=== PATIENT | female | born 1945 | race Caucasian/White ===

== ENCOUNTER → 2017-11-24 | Outpatient (CLI) | payer MEDICARE, OTHER ==
[2017-11-24] MEDS: IOHEXOL 180 MG/ML 10 ML VIAL. IT (10:27)
== END | disposition home or self-care (01) ==
LOC: RAD 08:34
DX: M51.16 Intervertebral disc disorders with radiculopathy, lumbar region (principal); N28.1 Cyst of kidney, acquired; M43.16 Spondylolisthesis, lumbar region; Z98.890 Other specified postprocedural states
CPT/HCPCS: 72132; 72265

== ENCOUNTER → 2020-07-03 | Outpatient (CLI) | payer MEDICARE, OTHER ==
[2017-11-24 11:16] VITALS: BP 184/66
[~2020-07-03] MED LIST: AMLO10TA8 PO; ASPI-482 PO; CARV25TA2 PO; CLON0.1T PO; CLON0.2T PO; CYAN100031 PO; FAMO20TA5 PO; LISI-130 PO; LOSA-73 PO; METF500T16 PO; MULT-460 PO; OMEG10005 PO; PANT40TA77 PO; PRAV20TA2 PO; PRAV80TA2 PO; PREG-9 PO; TRAM50TA PO; VITA150T PO; VITA400C11 PO
--- NOTE | 2020-07-03 13:05 | PDOC2 ---
INITIAL PAIN CONSULT DATE OF SERVICE: DOS: DATE: 07/03/20 TIME: 12:57 CHIEF COMPLAINT: Chief Complaint: Low back and right lower extremity pain HISTORY OF PRESENT ILLNESS: This is a 74-year-old female presents history of pain low back right lower extremity for many years status post lumbar surgery 2013 with good results initially with pain returning and over the past 2 years patient reports she had fallen in her laundry room about 2 years ago and has had pain in the low back and right lower extremity ever since. Patient reports is constant sharp stabbing throbbing shooting tingling with radiating pain in the lower back posterior gluteus posterior lateral thigh lateral calf and into the posterior calf as well on the right side with a burning sensation. Patient reports he is recently seen her neurosurgeon Dr. Dany Cutler who is not recommending any further surgery at this time. Patient has had multiple procedures over the years for pain management including epidural steroid injections trigger points also physical therapies exercise chiropractic treatment over the years as well as taking Percocet which does decrease the pain patient reports that the injections only made her blood pressure go up and did not significantly help the pain long-term. Patient ports pain wakes her up from sleep release 3 times a night does not affect her bowel bladder control but does affect ability to walk fairly significantly she uses a cane at times it did not happen with her on her visit today. Patient rates her disability of 0-10 10 me the worst is a 10 with family home responsibilities social activity occupation 9 with recreation 8 with self-care and 7 with life support activities patient had MRI scan lumbar spine April 17, 2020 showing disc desiccation throughout the lumbar spine with sparing of the L5-S1 multilevel degenerative changes facet arthrosis and ligamentum flavum thickening L4-5 shows anterolisthesis with central canal stenosis and bilateral neuroforaminal stenosis. Patient reports no loss of motor function but significant fatigability of the right lower extremity with any weightbearing standing or walking. PAST MEDICAL HISTORY: PMH: Type 2 diabetes, colon cancer, shortness of breath, hypertension quit smoking 11 years ago, arthritis, rheumatoid arthritis, stage IV kidney disease PREVIOUS SURGERIES: Past Surgical Hx: Colon resection, cholecystectomy, hammertoe correction, right carpal tunnel repair, lumbar laminectomy, sinus surgery, left rotator cuff repair CURRENT MEDICATIONS: Current Meds: Active Scripts Medications Dose Route/Sig Max Daily Dose Days Date Category Pantoprazole Sodium 40 Mg Tablet.dr 40 Mg PO DAILY 01/24/14 Reported Tramadol Hcl 50 Mg Tablet 50 Mg PO TID PRN 01/24/14 Reported Multiple Vitamin (Multivitamin With Minerals) 1 Each Tablet 1 Each PO DAILY 01/24/14 Reported Super B Complex (Vitamin B Complex & Vit C No.4) 150 Mg Tablet 150 Mg PO DAILY 01/24/14 Reported [place]-3 (Kenilworth-3 Fatty Acids) 1,000 Mg Capsule 1,200 Mg PO DAILY 01/24/14 Reported B-12 (Cyanocobalamin (Vitamin B-12)) 1,000 Mcg Tablet.er 1,000 Mcg PO DAILY 01/24/14 Reported Vitamin E 400 Unit Capsule 400 Unit PO DAILY 01/24/14 Reported Aspir 81 (Aspirin) 81 Mg Tablet.dr 81 Mg PO DAILY 01/24/14 Reported Losartan Potassium 50 Mg Tablet 50 Mg PO DAILY 01/24/14 Reported Amlodipine Besylate 10 Mg Tablet 10 Mg PO DAILY 01/24/14 Reported Clonidine Hcl 0.2 Mg Tablet 0.2 Mg PO HS 01/24/14 Reported Carvedilol 25 Mg Tablet 25 Mg PO BID 01/24/14 Reported Metformin Hcl 500 Mg Tablet 500 Mg PO BID 01/24/14 Reported Pravastatin Sodium 20 Mg Tablet 20 Mg PO HS 01/24/14 Reported ALLERGIES; Allergies: Coded Allergies: No Known Drug Allergies (Unverified , 02/10/14) FAMILY HISTORY: Family Hx: Breast cancer, hypertension SOCIAL HISTORY: Social Hx: Patient does not drink alcohol does not smoke quit many years ago does not use any illegal illicit recreational drugs is single [place] has 1 child living at home and is currently retired. REVIEW OF SYSTEMS: ROS: Positive for those items mentioned in historyof present illness, all systems reviewed, otherwise negative, is complete full and well-documented on patient's chart PHYSICAL EXAM: VS: Blood pressure 149/78 pulse 54 respirations 18 temperature 97.7 F height is 5 foot 4 and half inches weight is 1 3 6 pounds PE: PHYSICAL EXAMINATION: GENERAL: The patient is awake, alert, oriented, appropriate, very pleasant demeanor HEENT: Shows normocephalic, atraumatic. Extraocular movements are intact and symmetrical. Oral cavity: Mucous membranes moist and pink. Dentition is intact. NECK: Shows anterior throat supple without palpable lymphadenopathy noted. Swallow reflex symmetrical. CHEST: Shows normal on inspection. Breath sounds are clear bilaterally, no rales rhonchi or wheezes auscultated. HEART: Shows S1, S2 clear. No murmurs auscultated. ABDOMEN: Soft, nontender, nondistended. No palpable organomegaly is noted. No rebound or guarding demonstrated. BACK: Shows spine grossly in the midline. Normal-appearing cervical lordotic curvature. There is slightly increased thoracic kyphosis, some minor flattening of the lumbar lordotic curvature, with well-healed surgical scarring noted. Lumbar paraspinous muscles show symmetrical on inspection, on palpation shows some moderate tenderness diffusely throughout the upper, middle and lower distribution of the paraspinous muscles bilaterally and also into the lower thoracic paraspinous musculature, firm and tender, but without specific trigger points, without radiation of pain. The patient has good rotational motion of the lumbar spine, both laterally as well as extension and flexion without significant difficulty. No tenderness over the spinous processes, sacrum or sacroiliac regions. EXTREMITIES: Lower extremities show deep tendon reflexes 1+ in the patellar and tendo calcaneus tendons. Motor exam is 5 on a scale of 5 with right dorsiflexion, extension, quadriceps and hamstring flexion and 5/5 on the left. Peripheral pulses are 1+ posterior tibial. No peripheral edema is noted bilaterally. Lower extremities are warm and dry to touch, equal in color and appearance. Straight leg raise noted to be negative on the right, left side is negative. Gaenslen's and Miah's maneuvers are negative as well. The patient is able to stand, stand on her toes without significant difficulty or loss of balance walks with a slight shuffling gait does not appear to favor the right or left lower extremity significantly, not use any assistive devices to ambulate.. SKIN: Shows warm and dry, good turgor. No edema. No sores, rashes or bruising throughout. IMPRESSION: Impression: 74-year-old female with approximate 2-year history increasing pain low back right lower extremity radicular fashion MRI scan lumbar spine as noted History of arthritis Hypertension Diabetes Plan: Options were discussed with the patient including conservative medical management, physical therapy, interventional techniques. Patient is not interested in any of these techniques at this time we did discuss a spinal cord stimulator as recommended by her neurosurgeon. Patient would like to take some time to review the material and see if this is something she will be interested in pursuing we discussed a psychiatric evaluation which she will need to satisfy insurance requirements as well. Patient will contact our office with information regarding a psychologist in her area as she lives in [facility] if she wishes to move forward. DUSTY DUBOIS MD Jul 03, 2020 13:05
== END | disposition home or self-care (01) ==
LOC: PNCL 09:43
PROVIDERS: ATTEND Anesthesiology
DX: M54.5 Low back pain (principal); M79.661 Pain in right lower leg; I12.9 Hypertensive chronic kidney disease with stage 1 through stage 4 chronic kidney disease, or unspecified chronic kidney disease; N18.4 Chronic kidney disease, stage 4 (severe); E11.22 Type 2 diabetes mellitus with diabetic chronic kidney disease; M06.9 Rheumatoid arthritis, unspecified; M19.90 Unspecified osteoarthritis, unspecified site; Z87.891 Personal history of nicotine dependence; Z85.038 Personal history of other malignant neoplasm of large intestine; Z98.890 Other specified postprocedural states; Z82.49 Family history of ischemic heart disease and other diseases of the circulatory system; Z79.82 Long term (current) use of aspirin; Z79.899 Other long term (current) drug therapy
CPT/HCPCS: G0463

== ENCOUNTER → 2020-08-27 | Outpatient (CLI) | payer MEDICARE, OTHER ==
[2017-11-24 11:16] VITALS: BP 184/66
[~2020-08-27] MED LIST changes: +AMLO-187 PO; -AMLO10TA8 PO; +LIDOCAINE 1% PF 2 ML VIAL. ONE; +VITA400C37 PO; +Vit D
--- NOTE | 2020-08-27 14:34 | PDOC ---
Progress Note - Pain Clinic Date of Service: DOS: DATE: 08/27/20 TIME: 14:29 Diagnosis: Dx: Lumbar radiculopathy with lumbar degenerative disc disease lumbar spinal stenosis and lumbar postlaminectomy syndrome History or Present Illness: HPI: 74-year-old female returns follow-up status post initial evaluation preauthorization for spinal cord stimulator temporary leads placement. Patient is required that it would like to proceed still complains of significant pain in her low back right lower extremity posterior gluteus posterior thigh posterior calf lateral thigh anterior calf anterior lower leg into the foot on the right side across the low back as well. Patient which is tingling burning stabbing aching and shooting becoming constant severe with activity better with sitting or laying down but she is unable to lay on her right side which is been disturbing her from sleep. Patient rates her pain as a 9 on scale 10 is worse over the past week 9 on average 8 its least is an 8 today patient reports it does awaken her from sleep frequently which if she lays on her right side reports no new motor or sensory deficits no new bowel or bladder incontinence or other complaints. Patient is had psychiatric evaluation showing her in a "good" category for spinal surgery and implantable devices. Physical Exam: VS: Blood pressure is 192/87 pulse 61 respirations 16 temperature 97.9 F weight is 142 pounds PE: PHYSICAL EXAMINATION: GENERAL: The patient is awake, alert, oriented, appropriate, very pleasant demeanor HEENT: Shows normocephalic, atraumatic. Extraocular movements are intact and symmetrical. Oral cavity: Mucous membranes moist and pink. NECK: Shows anterior throat supple without palpable lymphadenopathy noted. Swallow reflex symmetrical. CHEST: Shows normal on inspection. Breath sounds are clear bilaterally no rales rhonchi auscultated. HEART: Shows S1, S2 clear. No murmurs auscultated. ABDOMEN: Soft, nontender, nondistended, obese. No palpable organomegaly is noted. No rebound or guarding demonstrated. BACK: Shows spine grossly in the midline. Normal-appearing cervical lordotic curvature. Well-healed surgical scars noted in the midline. There is slightly increased thoracic kyphosis, some minor flattening of the lumbar lordotic curvature. Lumbar paraspinous muscles show symmetrical on inspection, on palpation shows some moderate tenderness diffusely throughout the upper, middle and lower distribution of the paraspinous muscles without specific trigger points, without radiation of pain, without significant asymmetry. The patient has good rotational motion of the lumbar spine, both laterally as well as extension and flexion without significant difficulty. No tenderness over the spinous processes, sacrum or sacroiliac regions. EXTREMITIES: Lower extremities show deep tendon reflexes 1+ in the patellar and tendo calcaneus tendons. Motor exam is 5 on a scale of 5 with right dorsiflexion, extension, quadriceps and hamstring flexion and 5/5 on the left. Peripheral pulses are 1+ posterior tibial. No peripheral edema is noted bilaterally. Lower extremities are warm and dry to touch, equal in color and appearance. SKIN: Shows warm and dry, good turgor. No edema. No sores, rashes or bruising throughout. Procedure: Procedure: Options were discussed with the patient. Patient's old chart was reviewed as her current medic regimen updated current review of systems updated today as well. We will proceed with temporary spinal cord stimulator leads placement x2 with C arm. Risks were discussed including but not limited to: Bleeding, infection, possibility of epidural hematoma and subsequent neurological compromise, dural puncture, headaches, spinal cord and/or nerve damage, and poor results regarding pain control. Patient understands wished to proceed. Patient will return to clinic in approximate 1 week for removal of the spinal cord stimulator leads and reassessment of patient's pain level at that time. Patient was counseled as activity level especially caution with the stimulator leads and postural changes with the low back. Medication Injected: Med Injected: Under sterile prep and drape patient in prone position using C-arm fluoroscopic guidance patient's lumbar spine was identified and vertebral levels were counted did put external marker on the T8 level. This time the lumbar spine was revisualized and using 1% lidocaine, the area over the L3 4 level was anesthetized and then using a 14-gauge [email or web address] needle with stylette was entered to the epidural space at the L1 -2 level using a paramedian approach to the right with preservative-free normal saline [id number] technique aspiration was noted to be negative and using direct fluoroscopy visualization spinal cord stimulator lead was then advanced without significant resistance in the midline and confirmed posterior with both AP and lateral views, and advanced to the superior endplate of the T8 vertebral level superimposed with the superior spinal cord stimulator electrode lead. Fluoroscopy was used in a lateral view to verify posterior placement in the epidural space at this point as well. At this time a second lead was then introduced in similar fashion at the L 3-4 level and inserted and in the epidural space at the L1-2 level once again with preservative-free normal saline [id number] technique. Aspiration was again noted to be negative and using direct visualization with fluoroscopy second lumbar spinal cord stimulator lead was advanced without significant resistance in the midline with the superior electrode superimposed over the superior endplate of the T9 vertebral body. Lateral visualization was again confirmed with placement of the stimulator in the posterior epidural space. At this time the needles and stylette were removed with intermittent fluoroscopic visualization maintaining that the leads had not moved during this process and this was confirmed. This time 1% lidocaine was used to anesthetize the skin next to the insertion sites of the stimulator wires and using a 2-0 silk were then sutured in place. Mastisol and Tegaderm was then applied as well as reinforcing tape and gauze. Patient was transferred to the recovery area under his own power walking without difficulty and had no immediate complications from the procedure. Stimulation was then carried out with [facility] representatives. Patient will return to the clinic in approximately 1 week for removal of the temporary leads and reassessment of the patient's pain level. Condition at Discharge: Condition at Discharge: Edition discharge is stable patient tolerated procedure well had no immediate complications. Patient was discharged under her own power with her daughter present to drive. DUSTY DUBOIS MD Aug 27, 2020 14:34
== END ==
LOC: PNCL 12:48
PROVIDERS: ATTEND Anesthesiology
DX: M51.16 Intervertebral disc disorders with radiculopathy, lumbar region (principal); M48.061 Spinal stenosis, lumbar region without neurogenic claudication; M46.1 Sacroiliitis, not elsewhere classified; I12.9 Hypertensive chronic kidney disease with stage 1 through stage 4 chronic kidney disease, or unspecified chronic kidney disease; N18.9 Chronic kidney disease, unspecified; E11.22 Type 2 diabetes mellitus with diabetic chronic kidney disease; Z79.82 Long term (current) use of aspirin; Z79.899 Other long term (current) drug therapy; Z79.84 Long term (current) use of oral hypoglycemic drugs
CPT/HCPCS: 63650; C1897; J3490

== ENCOUNTER → 2020-08-30 | Outpatient (CLI) | payer MEDICARE, OTHER ==
[2017-11-24 11:16] VITALS: BP 184/66
[~2020-08-30] MED LIST changes: -LIDOCAINE 1% PF 2 ML VIAL. ONE
--- NOTE | 2020-08-30 15:43 | PDOC ---
Progress Note - Pain Clinic Date of Service: DOS: DATE: 08/30/20 TIME: 15:37 Diagnosis: Dx: Lumbar radiculopathy with lumbar degenerative disc disease lumbar spinal stenosis and post lumbar laminectomy syndrome History or Present Illness: HPI: 74-year-old female returns follow-up status post spinal cord stimulator temporary leads placed 4 days ago. Patient reports that the pain has not been significantly reduced and she feels uncomfortable with the leads in however the pain from insertion of the leads has subsided but took about 48 hours to really be more comfortable from the procedural pain. Patient reports that pain is still the same in the low back and right lower extremity and does not see any significant benefit at this time from the stimulation. Patient rates her pain as a 8 on a scale of 10 at all times over the past few days worst average and least is an 8 on a scale of 10 today described as cramping stabbing dull shooting can be severe and unbearable again unaffected with the stimulation by her report. Physical Exam: VS: Blood pressure is 186/91 pulse 61 respiration 16 temperature 97.4 F PE: PHYSICAL EXAMINATION: GENERAL: The patient is awake, alert, oriented, appropriate, very pleasant demeanor HEENT: Shows normocephalic, atraumatic. Extraocular movements are intact and symmetrical. NECK: Shows anterior throat supple without palpable lymphadenopathy noted. Swallow reflex symmetrical. CHEST: Shows normal on inspection. Breath sounds are clear bilaterally. ABDOMEN: Soft, nontender, nondistended. No palpable organomegaly is noted. BACK: Shows spine grossly in the midline. Normal-appearing cervical lordotic curvature. Lumbar paraspinous muscles show symmetrical on inspection, on palpation shows some moderate tenderness diffusely throughout the upper, middle and lower distribution of the paraspinous muscles bilaterally without radiation of pain. The patient has good rotational motion of the lumbar spine, both laterally as well as extension and flexion without significant difficulty. No tenderness over the spinous processes, sacrum or sacroiliac regions. Patient's bandages were taken down and under sterile prep and drape the sutures were cut and stimulator leads were removed with tips intact, sites clean and dry, no erythema no tenderness no discharge. EXTREMITIES: Lower extremities show deep tendon reflexes 1+ in the patellar and tendo calcaneus tendons. Motor exam is 5 on a scale of 5 with right dorsiflexion, extension, quadriceps and hamstring flexion and 5/5 on the left. Peripheral pulses are 1+ posterior tibial. No peripheral edema is noted bilaterally. Lower extremities are warm and dry to touch, equal in color and appearance. SKIN: Shows warm and dry, good turgor. No edema. No sores, rashes or bruising throughout. Procedure: Procedure: Options were discussed with the patient. Patient's old chart was reviewed as her current medication regimen updated current review of systems updated today as well. We will remove stimulator leads today. Spinal cord stimulator leads were removed tips intact site clean and dry no erythema no tenderness no drainage. Medication Injected: Med Injected: None Condition at Discharge: Condition at Discharge: Patient will follow-up on as-needed basis at this time. Patient was given instructions on how to obtain her medical records from the medical records department as she would like to have this for her on record. Patient also requested Lidoderm patches to be called into her pharmacy we will oblige. Patient will follow up at this time on as-needed basis. DUSTY DUBOIS MD Aug 30, 2020 15:43
== END ==
LOC: PNCL 13:57
PROVIDERS: ATTEND Anesthesiology
DX: M51.16 Intervertebral disc disorders with radiculopathy, lumbar region (principal); M48.061 Spinal stenosis, lumbar region without neurogenic claudication; I12.9 Hypertensive chronic kidney disease with stage 1 through stage 4 chronic kidney disease, or unspecified chronic kidney disease; N18.9 Chronic kidney disease, unspecified; E11.22 Type 2 diabetes mellitus with diabetic chronic kidney disease; Z79.84 Long term (current) use of oral hypoglycemic drugs; Z79.899 Other long term (current) drug therapy
CPT/HCPCS: G0463